=== PATIENT | male | born 1970 | race Caucasian/White ===

== ENCOUNTER → 2016-12-11 | Emergency (ER) | payer SELFPAY ==
[~2016-12-11] MED LIST: FLUCONAZOLE 100 MG TABLET (UD) ONE; FLUCONAZOLE 100 MG TABLET (UD) PO ONE; IBUPROFEN 400 MG TABLET (FP) PO ONE; LIDOCAINE VISCOUS 2% ORAL/TOP 20 ML UNIT-DOSE CUP MM ONE; SODIUM CHLORIDE 1,000 ML IV ONE; SODIUM CHLORIDE 1,000 ML IV STA; prednisoLONE SODIUM PHOSPHATE 15 MG/5 ML ORAL SOLN BOTTLE ONE; prednisoLONE SODIUM PHOSPHATE 15 MG/5 ML ORAL SOLN BOTTLE PO ONE
[2016-12-11 11:55] VITALS: BMI 37.3
--- NOTE | 2016-12-11 12:09 | PDOC ---
History of Present Illness - General History Source: Patient Exam Limitations: No Limitations - History of Present Illness Initial Comments: 12/11/16 12:46 The patient is a 46 year old male, with a significant past medical history of EtOH abuse (last episode saturday night) who presents to the emergency department with swollen tongue and tongue. He ranks his pain a 9/10 in pain intensity. He reports pain when eating and reports the pain radiates from his tongue up into his head. He also reports having trouble opening his mouth secondary to mouth pain. He reports having a new sexual encounter on saturday while intoxicated. He denies any recent fevers. He denies any recent nausea, vomit, diarrhea or constipation. He denies any recent chest pain or shortness of breath. Allergies: NKA Past surgical history: None reported. Social History: Current everyday smoker. EtOH abuse (daily drinker). Cocaine use. <Sher Ratliff - Last Filed: 12/11/16 12:51> - General History Source: Patient, Old Records Exam Limitations: No Limitations <Susan Garcia - Last Filed: 12/11/16 15:36> - General Chief Complaint: Pain Stated Complaint: alcohol withdrawal SWOLLEN TONGUE Time Seen by Provider: 12/11/16 12:09 Past History <Sher Ratliff - Last Filed: 12/11/16 12:51> - Past Medical History Suicide Attempt (Hx): No Other medical history: alcohol abuse - Psycho/Social/Smoking Cessation Hx Anxiety: No Suicidal Ideation: No Smoking Status: Yes Smoking History: Current every day smoker Have you smoked in the past 12 months: Yes Number of Cigarettes Smoked Daily: 5 Information on smoking cessation initiated: Yes 'Breaking Loose' booklet given: 12/11/16 Hx Alcohol Use: Yes (daily) Drug/Substance Use Hx: Yes (hx of cocciane) Substance Use Type: None <Susan Garcia - Last Filed: 12/11/16 15:36> - Past Medical History Allergies/Adverse Reactions: Allergies Allergy/AdvReac Type Severity Reaction Status Date / Time No Known Allergies Allergy Verified 12/11/16 11:44 Home Medications: Ambulatory Orders Silver Sulfadiazine [Silvadene] 1,000 gm TP BID #1 cream..g. 11/06/15 Fluconazole [Diflucan -] 100 mg PO DAILY #14 tablet 12/11/16 Review of Systems - Review of Systems Able to Perform ROS?: Yes Comments:: 12/11/16 12:46 CONSTITUTIONAL: Absent: fever, no chills, no fatigue EYES: Absent: visual changes ENT: +swollen tongue and mouth pain. Absent: ear pain, no sore throat CARDIOVASCULAR: Absent: chest pain, no palpitations RESPIRATORY: Absent: cough, no SOB GI: Absent: abdominal pain, no nausea, no vomiting, no constipation, no diarrhea GENITOURINARY: Absent: dysuria, no frequency, no hematuria MUSKULOSKELETAL: Absent: back pain, no arthralgia, no myalgia SKIN: Absent: rash NEURO: Absent: headache <Sher Ratliff - Last Filed: 12/11/16 12:51> *Physical Exam - Vital Signs Last Vital Signs Temp Pulse Resp BP Pulse Ox 98.7 F 124 H 18 119/79 100 12/11/16 11:46 12/11/16 11:46 12/11/16 11:46 12/11/16 11:46 12/11/16 11:46 - Physical Exam Comments: 12/11/16 12:48 GENERAL: Well developed, well nourished. Awake and alert. No acute distress. HEENT: Discoloration of the tongue (yellowish) with ulceration on lateral aspect of the tongue. +halitosis. Normocephalic, atraumatic. PERRLA, EOMI. No conjunctival pallor. Sclera are non-icteric. Moist mucous membranes. Oropharynx is clear. NECK: Supple. Full ROM. No JVD. Carotid pulses 2+ and symmetric, without bruits. No thyromegaly. No lymphadenopathy. CARDIOVASCULAR: Regular rate and rhythm. No murmurs, rubs, or gallops. Distal pulses are 2+ and symmetric. PULMONARY: No evidence of respiratory distress. Lungs clear to auscultation bilaterally. No wheezing, rales or rhonchi. ABDOMINAL: Soft. Non-tender. Non-distended. No rebound or guarding. No organomegaly. Normoactive bowel sounds. MUSCULOSKELETAL Normal range of motion at all joints. No bony deformities or tenderness. No CVA tenderness. EXTREMITIES: No cyanosis. No clubbing. No edema. No calf tenderness. SKIN: Warm and dry. Normal capillary refill. No rashes. No jaundice. NEUROLOGICAL: Alert, awake, appropriate. Cranial nerves 2-12 intact. No deficits to light touch and temperature in face, upper extremities and lower extremities. No motor deficits in the in face, upper extremities and lower extremities. Normoreflexic in the upper and lower extremities. Normal speech. Toes are down- going bilaterally. Gait is normal without ataxia. PSYCHIATRIC: Cooperative. Good eye contact. Appropriate mood and affect. <Sher Ratliff - Last Filed: 12/11/16 12:51> - Vital Signs Last Vital Signs Temp Pulse Resp BP Pulse Ox 98.7 F 124 H 18 119/79 100 12/11/16 11:46 12/11/16 11:46 12/11/16 11:46 12/11/16 11:46 12/11/16 11:46 <Susan Garcia - Last Filed: 12/11/16 15:36> ED Treatment Course - LABORATORY CBC & Chemistry Diagram: 12/11/16 12:38 12/11/16 12:38 <Sher Ratliff - Last Filed: 12/11/16 12:51> - LABORATORY CBC & Chemistry Diagram: 12/11/16 12:38 12/11/16 12:38 <Susan Garcia - Last Filed: 12/11/16 15:36> Medical Decision Making - Medical Decision Making 12/11/16 13:12 46-year-old male with history of alcohol abuse who presents to the emergency department with 4 day history of, pain and swelling with ulcerative lesions. Differential diagnosis includes but is not limited to: Glossitis, herpangitis, vitamin deficiency dehydration, yeast infection, dehydration, toxic/metabolic derangement. Plan: 1. Labs 2. IV fluids 3. HIV test 4. Viscous lidocaine 5. Steroids 6. Observe and reevaluate 12/11/16 15:32 Addendum: The labs were reviewed and are noted in the EMR. The plan is to discharge the patient on Diflucan 100 mg daily for 13 days. He is received one dose of Diflucan in the ED today. I will refer him to ENT for follow-up. I have also advised the patient to return to the ED if symptoms persist, worsen, or new symptoms arise. <Susan Garcia - Last Filed: 12/11/16 15:36> *DC/Admit/Observation/Transfer - Attestations Scribe Attestion: 12/11/16 12:46 Documentation prepared by Sher Ratliff, acting as medical clerk for Susan Garcia MD. <Sher Ratliff - Last Filed: 12/11/16 12:51> - Discharge Dispostion Admit: No - Attestations Physician Attestion: 12/11/16 13:15 I, Dr. Susan Garcia, attest that the scribes documentation that appears above has been prepared under my direction and personally reviewed by me in its entirety. I confirmed that the note above accurately reflects all work, treatment, procedures, and medical decision-making performed by me. <Susan Garcia - Last Filed: 12/11/16 15:36> Diagnosis at time of Disposition: Glossitis - Discharge Dispostion Disposition: HOME Condition at time of disposition: Stable - Prescriptions Prescriptions: Fluconazole [Diflucan -] 100 mg PO DAILY #14 tablet - Patient Instructions Printed Discharge Instructions: Thrush-Adult Additional Instructions: Follow up with an ENT physician. One doctor is: Dr. Pulido--call [phone] please call for an appointment. Please practice good oral hygeine and brush your teeth at least twice daily. Avoid alcohol and hot liquids. You are being discharged on Diflucan 100mg --take one tablet daily for the next 13 days. Return to the Emergency Department if your symptoms persist, worsen or new symptoms arise.
[2016-12-11 12:51] LABS: BASOPHIL 0.5 % (0-2.0); EOSINOPHIL 0.1 % (0-4.5); MCH 32.3 pg (25.7-33.7); MCHC 34.3 g/dl (32.0-35.9); MEAN CELL VOLUME 94.1 fl (80-96); MEAN PLT VOLUME 9.7 fl (7.5-11.1); NEUTROPHILS 61.4 % (42.8-82.8); PLATELET COUNT 126 K/MM3 (134-434); RDW 12.9 % (11.9-15.9); WHITE BLOOD COUNT 5.1 K/mm3 (4.0-10.0)
[2016-12-11 12:52] LABS: URINE APPEARANCE CLOUDY; URINE BILIRUBIN NEGATIVE (NEGATIVE); URINE BLOOD NEGATIVE (NEGATIVE); URINE COLOR AMBER; URINE GLUCOSE (UA) NEGATIVE (NEGATIVE); URINE KETONE NEGATIVE (NEGATIVE); URINE LEUK ESTERASE NEGATIVE (NEGATIVE); URINE NITRITE NEGATIVE (NEGATIVE); URINE PROTEIN 2+ (NEGATIVE); URINE UROBILINOGEN 2.0 E.U/dl E.U./dl (0.2-1.0)
[2016-12-11 12:57] LABS: URINE MARIJUANA THC NEGATIVE ng/ml (CUTOFF=50)
[2016-12-11 13:01] LABS: GRANULAR CASTS 19 /lpf; URINE BACTERIA MANY /hpf (NONE SEEN); URINE HYALINE CAST 118 /lpf; URINE MUCUS MANY; URINE RBC 1 /hpf (0-3); URINE WBC 8 /hpf (3-5)
[2016-12-11 13:19] LABS: ALBUMIN 4.2 g/dl (3.4-5.0); ANION GAP 11 (8-16); BILIRUBIN,TOTAL 0.8 mg/dL (0.2-1.0); CALCIUM 9.2 mg/dL (8.5-10.1); CO2 26 mmol/L (21-32); CREATININE 1.5 mg/dL (0.7-1.3); GLUCOSE,RANDOM 86 mg/dL (74-106); SGOT/AST 222 U/L (15-37); SGPT/ALT 245 U/L (12-78)
[2016-12-11 13:20] LABS: ALK PHOS 69 U/L (45-117)
[2016-12-11 14:16] LABS: HIV 1 & 2 AB NEGATIVE; HIV 1 AGp24 NEGATIVE
[2016-12-11 15:38] LABS: ACETONE SERUM TRACE (NEGATIVE)
[2016-12-11 15:58] VITALS: BP 136/85; PULSE 98; TEMP 98.3
== END | disposition home or self-care (01) ==
LOC: JER 11:42
PROC: 3E0337Z Introduction of Electrolytic and Water Balance Substance into Peripheral Vein, Percutaneous Approach (ICD-10-PCS; principal; 2016-12-11)
DX: K14.0 Glossitis (principal)
CPT/HCPCS: 36415; 80053; 80307; 81003; 81015; 82009; 85025; 87389; 99283-25

== ENCOUNTER 2017-01-30 17:55 | Emergency (ER) | payer SELFPAY ==
[2017-01-30 18:00] VITALS: BP 151/96; PULSE 115; TEMP 98; BMI 33.0
--- NOTE | 2017-01-30 18:07 | PDOC ---
History of Present Illness - General Chief Complaint: Injury Stated Complaint: INJURY Time Seen by Provider: 01/30/17 18:03 History Source: Patient - History of Present Illness Occurred: reports: this afternoon Upper Extremity Pain Location: right: hand Method of Injury: reports: direct blow Past History - Past Medical History Allergies/Adverse Reactions: Allergies Allergy/AdvReac Type Severity Reaction Status Date / Time No Known Allergies Allergy Verified 01/30/17 18:00 Home Medications: Ambulatory Orders NK [No Known Home Medication] 01/30/17 Suicide Attempt (Hx): No Other medical history: denies - Psycho/Social/Smoking Cessation Hx Anxiety: No Suicidal Ideation: No Smoking Status: Yes Smoking History: Current every day smoker Have you smoked in the past 12 months: Yes Number of Cigarettes Smoked Daily: 10 Information on smoking cessation initiated: Yes 'Breaking Loose' booklet given: 01/30/17 Hx Alcohol Use: No Drug/Substance Use Hx: No Substance Use Type: Alcohol Review of Systems - Review of Systems Musculoskeletal: Yes: Joint Pain, Joint Swelling *Physical Exam - Vital Signs Last Vital Signs Temp Pulse Resp BP Pulse Ox 98 F 115 H 19 151/96 97 01/30/17 17:58 01/30/17 17:58 01/30/17 17:58 01/30/17 17:58 01/30/17 17:58 - Physical Exam General Appearance: Yes: Appropriately Dressed HEENT: positive: Normal Voice Neck: positive: Supple Respiratory/Chest: negative: Respiratory Distress Extremity: positive: Swelling (over MCPs of R 3rd and 4th digits, > over 4th MCP ) Integumentary: positive: Dry, Warm Neurologic: positive: Fully Oriented, Alert, Normal Mood/Affect ED Treatment Course - RADIOLOGY Radiology Studies Ordered: Category Date Time Status HAND- RIGHT [RAD] Stat Radiology 01/30/17 18:05 Ordered Medical Decision Making - Medical Decision Making 01/30/17 18:06 46 yo male, p/w R hand pain and swelling s/p punching a tile wall today when he became angry. Pt well johnny and in NAD w/ moderate swelling over MCP of R 3rd and 4th digits R/o fx -pain meds in ED -XR 01/30/17 18:44 XR neg for fx. Adriel applied in ED. Dc w/ otc pain meds 01/30/17 19:48 01/30/17 19:48 *DC/Admit/Observation/Transfer Diagnosis at time of Disposition: Hand sprain Qualifiers: Encounter type: initial encounter Laterality: right Qualified Code(s): S63.91XA - Sprain of unspecified part of right wrist and hand, initial encounter - Discharge Dispostion Disposition: HOME Condition at time of disposition: Good - Patient Instructions Printed Discharge Instructions: DI for Hand Injury Additional Instructions: Your XR was negative for fracture. Take motrin as needed for pain
[2017-01-30] MEDS: IBUPROFEN 400 MG TABLET (FP) PO ONE (18:27)
== END 2017-01-30 18:48 | disposition home or self-care (01) ==
LOC: JERFT 17:55
DX: S62.501A Fracture of unspecified phalanx of right thumb, initial encounter for closed fracture (principal); S63.91XA Sprain of unspecified part of right wrist and hand, initial encounter; W22.8XXA Striking against or struck by other objects, initial encounter; Y93.89 Activity, other specified; Y92.89 Other specified places as the place of occurrence of the external cause
CPT/HCPCS: 73130-TC-RT; 99281-25

== ENCOUNTER 2017-02-18 18:02 | Emergency (ER) | payer SELFPAY ==
[2017-02-18 18:17] VITALS: BP 120/88; PULSE 113; TEMP 99; BMI 34.0
--- NOTE | 2017-02-18 18:21 | PDOC ---
History of Present Illness - General Chief Complaint: Bite Stated Complaint: BITE Time Seen by Provider: 02/18/17 18:19 History Source: Patient Exam Limitations: No Limitations - History of Present Illness Initial Comments: CHIEF COMPLAINT: 46 y/o afebrile male with no significant PMH here for tick bite to left leg. HISTORY OF PRESENT ILLNESS: Pt states 2 days ago he was bitten on the left leg by a tick. He believes the tick was in his leg for a few hours before he pulled it out and he states he pulled out the entire tick and it was not engorged. He now has a small red area where he was bitten and he is worried. He denies all other symptoms. Vital signs on arrival are notable for pulse of 113. REVIEW OF SYSTEMS: GENERAL/CONSTITUTIONAL: No fever/chills. No weakness. No weight change. HEAD, EYES, EARS, NOSE AND THROAT: No change in vision. No ear pain or discharge. No sore throat. MUSCULOSKELETAL: No joint or muscle swelling or pain. No neck or back pain. SKIN: +tick bite to left calf. NEUROLOGIC: No headache, vertigo, loss of consciousness, or loss of sensation. PHYSICAL EXAM: GENERAL: The patient is awake, alert, and fully oriented, in no acute distress. HEAD: Normal with no signs of trauma. EYES: Pupils equal, round and reactive to light, extraocular movements intact, sclera anicteric, conjunctiva clear. EXTREMITIES: Normal range of motion, no edema. NEUROLOGICAL: Normal speech, normal gait. SKIN: 1.5cm circular area of erythema to proximal, medial left lower leg with central scab. Wound explored and no sign of head of tick. No bullseye rash. No streaking. Past History - Past Medical History Allergies/Adverse Reactions: Allergies Allergy/AdvReac Type Severity Reaction Status Date / Time No Known Allergies Allergy Verified 02/18/17 18:13 Home Medications: Ambulatory Orders Doxycycline Hyclate [Vibramycin -] 100 mg PO BID #42 cap 02/18/17 Suicide Attempt (Hx): No Other medical history: DENIES. - Psycho/Social/Smoking Cessation Hx Anxiety: No Suicidal Ideation: No Smoking Status: Yes Smoking History: Current every day smoker Have you smoked in the past 12 months: Yes Number of Cigarettes Smoked Daily: 4 Information on smoking cessation initiated: No 'Breaking Loose' booklet given: 01/30/17 Hx Alcohol Use: No Drug/Substance Use Hx: No Substance Use Type: Alcohol *Physical Exam - Vital Signs Last Vital Signs Temp Pulse Resp BP Pulse Ox 99 F 113 H 19 120/88 95 02/18/17 18:13 02/18/17 18:13 02/18/17 18:13 02/18/17 18:13 02/18/17 18:13 Medical Decision Making - Medical Decision Making A/P: 46 y/o male here after being bitten by a tick 2 days ago. Do not suspect lyme however will run lyme test and treat empirically with doxy. Informed the patient that we will call him when the results of the lyme test come back. Called and rx for 21 day course of doxy to his pharmacy and gave first dose in the ER. Suggested he f/u with is doctor within 1 week and return to the ER immediately with any worsening or concerning symptoms. The patient verbalizes understanding of all instructions, has no further questions and is awaiting discharge. *DC/Admit/Observation/Transfer Diagnosis at time of Disposition: Tick bite of left calf Qualifiers: Encounter type: initial encounter Qualified Code(s): S80.862A - Insect bite ( nonvenomous), left lower leg, initial encounter; W57.XXXA - Bitten or stung by nonvenomous insect and other nonvenomous arthropods, initial encounter - Discharge Dispostion Disposition: HOME Condition at time of disposition: Good - Prescriptions Prescriptions: Doxycycline Hyclate [Vibramycin -] 100 mg PO BID #42 cap - Patient Instructions Printed Discharge Instructions: DI for Insect Bites and Stings, How to Remove a Tick Additional Instructions: Discharge Instructions: -A prescription for antibiotics was sent to your pharmacy; please take as prescribed -The results of your Lyme test will be called to you within 48-72 hours -Follow up with your doctor within 1 week -Return to the ER with any worsening or concerning symptoms
[2017-02-18] MEDS ORDERED: DOXYCYCLINE HYCLATE 100 MG CAPSULE PO ONE ×2 (18:43→19:00)
== END 2017-02-18 19:10 | disposition home or self-care (01) ==
LOC: JERFT 18:02
DX: S80.862A Insect bite (nonvenomous), left lower leg, initial encounter (principal); W57.XXXA Bitten or stung by nonvenomous insect and other nonvenomous arthropods, initial encounter; Y93.89 Activity, other specified; Y92.89 Other specified places as the place of occurrence of the external cause; F17.210 Nicotine dependence, cigarettes, uncomplicated
CPT/HCPCS: 36415; 86618; 99281-25

== ENCOUNTER 2017-03-22 11:16 | Emergency (ER) | payer SELFPAY ==
[2017-03-22 11:21] VITALS: BP 125/99; PULSE 101; TEMP 97.7; BMI 32.5
--- NOTE | 2017-03-22 12:36 | PDOC ---
History of Present Illness - General Chief Complaint: Bite Stated Complaint: DOG BITE Time Seen by Provider: 03/22/17 11:37 History Source: Patient Exam Limitations: No Limitations - History of Present Illness Initial Comments: 03/22/17 12:27 CHIEF COMPLAINT: Questionable dog bite HISTORY OF PRESENT ILLNESS: Patient is a 46-year-old male, alcoholic himself stating reports he was attempting to break up a dog fight at the park and sustained injury to right third finger. Patient unsure if he was bit by a pit bull. He states he saw some bleeding but there is no abrasion or open area noted. Patient admits to drinking 2 beers today states that he was shaking this morning. Pain with range of motion to third finger PIP. Timing/Duration: reports: just prior to arrival Severity: Yes: moderate Past History - Past Medical History Allergies/Adverse Reactions: Allergies Allergy/AdvReac Type Severity Reaction Status Date / Time No Known Allergies Allergy Verified 03/22/17 11:48 Home Medications: Ambulatory Orders NK [No Known Home Medication] 03/22/17 Suicide Attempt (Hx): No Other medical history: PATIENT DENIES MEDICAL HISTORY - Psycho/Social/Smoking Cessation Hx Anxiety: No Suicidal Ideation: No Smoking Status: Yes Smoking History: Current every day smoker Have you smoked in the past 12 months: Yes Number of Cigarettes Smoked Daily: 40 Information on smoking cessation initiated: No 'Breaking Loose' booklet given: 01/30/17 Hx Alcohol Use: No Drug/Substance Use Hx: No Substance Use Type: Alcohol Review of Systems - Review of Systems Constitutional: No: Symptoms Reported HEENTM: No: Symptoms Reported Respiratory: No: Symptoms reported Cardiac (ROS): No: Symptoms Reported ABD/GI: No: Symptoms Reported : No: Symptoms Reported Musculoskeletal: Yes: Joint Pain (PIP right third finger). No: Joint Swelling, Muscle Pain Integumentary: Yes: Other (no open area or puncture wound). No: Symptoms Reported, Bruising, Erythema Neurological: No: Tingling, Tremors Hematologic/Lymphatic: No: Symptoms Reported All Other Systems: Reviewed and Negative *Physical Exam - Vital Signs Last Vital Signs Temp Pulse Resp BP Pulse Ox 97.7 F 101 H 18 125/99 97 03/22/17 11:18 03/22/17 11:18 03/22/17 11:18 03/22/17 11:18 03/22/17 11:18 - Physical Exam General Appearance: Yes: Appropriately Dressed. No: Apparent Distress Respiratory/Chest: positive: Lungs Clear, Normal Breath Sounds Cardiovascular: positive: Regular Rhythm, Regular Rate Musculoskeletal: positive: Normal Inspection Extremity: positive: Normal Capillary Refill, Normal Inspection, Normal Range of Motion, Tender (PIP right third finger). negative: Swelling, Erythema, Inflammation Integumentary: positive: Normal Color, Dry. negative: Erythema, Swelling, Ecchymosis, Bruising Neurologic: positive: Alert, Normal Mood/Affect, Normal Response, Motor Strength 02/22 ED Treatment Course - RADIOLOGY Radiology Studies Ordered: Category Date Time Status HAND- RIGHT [RAD] Stat Radiology 03/22/17 12:16 Ordered Medical Decision Making - Medical Decision Making 03/22/17 13:42 A/P: Patient here for injury to right hand states that he was breaking up a dogfight may have hyperextended his hand while pulling the dog away, states that he was bleeding from the right third finger knuckle however there is no visible puncture wound noted. X-ray was negative for acute fracture dislocation. Injury is muscular, instructed patient he may take Motrin over-the -counter as needed however advised not to take medication while under the influence of alcohol. Spoke to the Department of Health because there is no visible injury no treatment at this time is required. Patient also under the influence of alcohol states that he is an alcoholic it is not reasonable at this time to prescribe antibiotics patient states he will not stop drinking alcohol. Referred to the clinic for evaluation and referral for detox Patient to follow-up as needed Encourage to cease alcohol use. *DC/Admit/Observation/Transfer Diagnosis at time of Disposition: Finger injury Qualifiers: Encounter type: initial encounter Laterality: right Qualified Code(s): S69.91XA - Unspecified injury of right wrist, hand and finger(s), initial encounter - Discharge Dispostion Disposition: HOME Condition at time of disposition: Good Admit: No - Referrals Referrals: [facility] [Provider Group] - Patient Instructions Additional Instructions: Redness, swelling, or signs of infection return to ER if any redness, swelling, or increased pain to right hand return to ER
== END 2017-03-22 13:50 | disposition home or self-care (01) ==
LOC: JERFT 11:16
DX: S69.91XA Unspecified injury of right wrist, hand and finger(s), initial encounter (principal); X58.XXXA Exposure to other specified factors, initial encounter; Y93.9 Activity, unspecified; Y92.9 Unspecified place or not applicable; F17.210 Nicotine dependence, cigarettes, uncomplicated
CPT/HCPCS: 73130-TC-RT; 99281-25

== ENCOUNTER 2017-09-02 09:13 | Emergency (ER) | payer OTHER ==
[2017-09-02 09:18] VITALS: BP 136/100; PULSE 103; TEMP 98.3; BMI 32.5
[2017-09-02] MEDS ORDERED: DIPHTH,PERTUSS(ACELL),TET 0.5 ML DISP.SYRIN IM ONE (09:32)
--- NOTE | 2017-09-02 09:38 | PDOC ---
History of Present Illness - General Chief Complaint: Laceration Stated Complaint: INJURY Time Seen by Provider: 09/02/17 09:25 History Source: Patient Exam Limitations: No Limitations - History of Present Illness Initial Comments: 09/02/17 10:51 47 yr male with laceration to right inner wrist happened yesterday am while taking out garbage, something sharp sticking out and cut his arm, he believes it was glass. 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 unknown tetanus vaccine. 09/02/17 15:51 Timing/Duration: reports: yesterday Severity: Yes: mild Location: reports: extremities (right inner wrist at the crease ) Past History - Past Medical History Allergies/Adverse Reactions: Allergies Allergy/AdvReac Type Severity Reaction Status Date / Time No Known Allergies Allergy Verified 09/02/17 09:14 Home Medications: Ambulatory Orders NK [No Known Home Medication] 03/22/17 COPD: No - Suicide/Smoking/Psychosocial Hx Smoking Status: Yes Smoking History: Current every day smoker Have you smoked in the past 12 months: Yes Number of Cigarettes Smoked Daily: 6 Information on smoking cessation initiated: Yes 'Breaking Loose' booklet given: 01/30/17 Hx Alcohol Use: Yes (daily) Drug/Substance Use Hx: No Substance Use Type: Alcohol Review of Systems - Review of Systems Able to Perform ROS?: Yes Is the patient limited Hungarian proficient: No Constitutional: No: Symptoms Reported, Unintentional Wgt. Loss HEENTM: No: Symptoms Reported Respiratory: No: Symptoms reported Cardiac (ROS): No: Symptoms Reported ABD/GI: No: Symptoms Reported : No: Symptoms Reported Musculoskeletal: No: Symptoms Reported Integumentary: Yes: See HPI *Physical Exam - Vital Signs Last Vital Signs Temp Pulse Resp BP Pulse Ox 98.3 F 103 H 18 136/100 100 09/02/17 09:15 09/02/17 09:15 09/02/17 09:15 09/02/17 09:15 09/02/17 09:15 - Physical Exam General Appearance: Yes: Nourished, Appropriately Dressed HEENT: positive: EOMI, INNA, Normal ENT Inspection Extremity: positive: Normal Capillary Refill, Normal Range of Motion, Other ( right inner wrist with vertical superficial 1.0cm laceration no bleeding, edges have approximated ) Neurologic: positive: Fully Oriented, Alert, Normal Mood/Affect, Normal Response , Motor Strength 5/5 Procedures - Laceration/Wound Repair Right Wrist Wound Length: to 2.5 cm Wound Explored: contaminated Wound's Depth, Shape: superficial, linear Irrigated w/ Saline: Yes Betadine Prep: Yes Progress: 09/02/17 09:34 bacitracin and bandaid placed after cleaning with betadine wound is superficial 1.0cm linear to the inner crease of right wrist no bleeding edges have approximated Medical Decision Making - Medical Decision Making 09/02/17 15:52 cc: superficial lac over 24hrs old no active bleeding will clean wound and update tetanus pt has no redness or swelling nv intact *DC/Admit/Observation/Transfer Diagnosis at time of Disposition: Tetanus-diphtheria (Td) vaccination, Laceration - Discharge Dispostion Disposition: HOME Condition at time of disposition: Good - Referrals - Patient Instructions Additional Instructions: keep clean with soap and water apply a topical antibiotic cream once a day for 3 -4 days such as Bacitracin or neopsorin cover with bandaid until healed - Post Discharge Activity Forms/Work/School Notes: Back to Work
== END 2017-09-02 09:39 | disposition home or self-care (01) ==
LOC: JERFT 09:13
PROC: 3E0234Z Introduction of Serum, Toxoid and Vaccine into Muscle, Percutaneous Approach (ICD-10-PCS; principal; 2017-09-02)
DX: S61.511A Laceration without foreign body of right wrist, initial encounter (principal); W26.8XXA Contact with other sharp object(s), not elsewhere classified, initial encounter; Y93.E9 Activity, other interior property and clothing maintenance; Y92.038 Other place in apartment as the place of occurrence of the external cause
CPT/HCPCS: 90715; 99281-25

== ENCOUNTER 2018-01-31 20:12 | Emergency (ER) | payer SELFPAY ==
--- NOTE | 2018-01-31 20:28 | PDOC ---
Rapid Medical Evaluation Chief Complaint: Nasal Bleeding Time Seen by Provider: 01/31/18 20:26 Medical Evaluation: Allergies Allergy/AdvReac Type Severity Reaction Status Date / Time No Known Allergies Allergy Verified 09/02/17 09:14 01/31/18 20:27 The patient presents with a chief complaint of: nosebleed I have performed a brief in-person evaluation of this patient. Pertinent physical exam findings: vss, no bleeding I have ordered the following: provider to determine The patient will proceed to the ED for further evaluation.
[2018-01-31 20:31] VITALS: BP 136/97; TEMP 98.3; BMI 34.0
--- NOTE | 2018-01-31 21:28 | PDOC ---
History of Present Illness - General Chief Complaint: Nasal Bleeding Stated Complaint: NOSE BLEED Time Seen by Provider: 01/31/18 20:26 - History of Present Illness Initial Comments: 01/31/18 21:24 Mr. Murray is a 47 yo male w/ no pmh who presents c/o a nosebleed. He reports he had initially had a nose bleed last night at around 7:30pm that stopped on its own but started again at 7:30pm this evening. He reports it was enough blood to fill his hand while he was in the shower and that his nose currently feels dry. He believes the blood is coming from his left nostril. Mr. 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 The patient denies chest pain, shortness of breath, headache and dizziness. Denies fever, chills, nausea, vomit, diarrhea and constipation. Denies dysuria, frequency, urgency and hematuria. Allergies: NKDA Past History - Past Medical History Allergies/Adverse Reactions: Allergies Allergy/AdvReac Type Severity Reaction Status Date / Time No Known Allergies Allergy Verified 09/02/17 09:14 Home Medications: Ambulatory Orders NK [No Known Home Medication] 03/22/17 COPD: No - Suicide/Smoking/Psychosocial Hx Smoking Status: Yes Smoking History: Current every day smoker Have you smoked in the past 12 months: Yes Number of Cigarettes Smoked Daily: 3 Information on smoking cessation initiated: No 'Breaking Loose' booklet given: 01/30/17 Hx Alcohol Use: Yes (daily) Drug/Substance Use Hx: No Substance Use Type: Alcohol Review of Systems - Review of Systems Comments:: 01/31/18 21:27 GENERAL/CONSTITUTIONAL: No fever or chills. No weakness. HEAD, EYES, EARS, NOSE AND THROAT: +Nose bleed as described. No change in vision. No ear pain or discharge. No sore throat. CARDIOVASCULAR: No chest pain or shortness of breath RESPIRATORY: No cough, wheezing, or hemoptysis. GASTROINTESTINAL: No nausea, vomiting, diarrhea or constipation. GENITOURINARY: No dysuria, frequency, or change in urination. MUSCULOSKELETAL: No joint or muscle swelling or pain. No neck or back pain. SKIN: No rash NEUROLOGIC: No headache, vertigo, loss of consciousness, or change in strength/ sensation. ENDOCRINE: No increased thirst. No abnormal weight change HEMATOLOGIC/LYMPHATIC: No anemia, easy bleeding, or history of blood clots. ALLERGIC/IMMUNOLOGIC: No hives or skin allergy. *Physical Exam - Vital Signs Last Vital Signs Temp Pulse Resp BP Pulse Ox 98.3 F 88 18 136/97 100 01/31/18 20:29 01/31/18 20:29 01/31/18 20:29 01/31/18 20:29 01/31/18 20:29 - Physical Exam Comments: 01/31/18 21:27 GENERAL: Awake, alert, and fully oriented, in no acute distress HEAD: No signs of trauma, normocephalic, atraumatic EYES: PERRLA, EOMI, sclera anicteric, conjunctiva clear ENT: Auricles normal inspection, hearing grossly normal, nares patent, oropharynx clear without exudates. Moist mucosa NECK: Normal ROM, supple, no lymphadenopathy, JVD, or masses LUNGS: No distress, speaks full sentences, clear to auscultation bilaterally HEART: Regular rate and rhythm, normal S1 and S2, no murmurs, rubs or gallops, peripheral pulses normal and equal bilaterally. ABDOMEN: Soft, nontender, normoactive bowel sounds. No guarding, no rebound. No masses EXTREMITIES: Normal inspection, Normal range of motion, no edema. No clubbing or cyanosis. NEUROLOGICAL: Cranial nerves II through XII grossly intact. Normal speech, normal gait, no focal sensorimotor deficits SKIN: Warm, Dry, normal turgor, no rashes or lesions noted. Medical Decision Making - Medical Decision Making 01/31/18 22:20 Mr. Murray is a 47 yo male w/ pmh as described presenting for evaluation of nosebleed, now stopped w/out intervention. No concerning findings noted; suspect etiology of bleed to be due to patient's aforementioned job w/ dust surrounding. Discharging w/ instructions to f/u as needed with PCP for further evaluation. 01/31/18 22:58 Patient also reports headache relieved with 975mg of tylenol. Discharging patient to home. *DC/Admit/Observation/Transfer Diagnosis at time of Disposition: Nosebleed - Discharge Dispostion Disposition: HOME Admit: No - Referrals - Patient Instructions Printed Discharge Instructions: DI for Nosebleed Additional Instructions: Please return if any return of nosebleed not controllable with pressure, fever, chills, or other concerning symptoms.. Follow-up with primary care provider as needed for further evaluation. - Post Discharge Activity
--- NOTE | 2018-01-31 21:45 | PDOC ---
Attending Attestation - Resident Resident Name: Gordo Alba - ED Attending Attestation I have performed the following: I have examined & evaluated the patient, The case was reviewed & discussed with the resident, I agree w/resident's findings & plan, Exceptions are as noted - HPI HPI: 01/31/18 21:43 47 M with no PMH presents to ED with epistaxis. Pt states that he first started having a nosebleed yesterday evening. Denies trauma or injury to nose. He states that this stopped spontaneously. Today, he had another nosebleed that did not stop after several minutes, so pt came to ED for evaluation. Pt denies any blood thinners. Denies lightheadedness/CP/SOB/palpitations. Does not regularly get nosebleeds. Upon my evaluation, pt reports bleeding has stopped. - Physicial Exam PE: 01/31/18 21:44 "GENERAL: Awake, alert, and fully oriented, in no acute distress. Generally weak appearing. HEAD: No signs of trauma EYES: PERRLA, EOMI, sclera anicteric, conjunctiva clear ENT: + scant dried blood to left nare, R nare clear, posterior oropharynx clear NECK: Nontender, no stepoffs, Normal ROM, supple, no lymphadenopathy, JVD, or masses LUNGS: Breath sounds equal, clear to auscultation bilaterally. No wheezes, and no crackles HEART: Regular rate and rhythm, normal S1 and S2, no murmurs, rubs or gallops ABDOMEN: Soft, nontender, normoactive bowel sounds. No guarding, no rebound. No masses EXTREMITIES: Normal range of motion, no edema. No clubbing or cyanosis. No cords, erythema, or tenderness NEUROLOGICAL: Cranial nerves II through XII intact. 5/5 strength and sensation in all extremities, Normal speech, normal gait, normal cerebellar function SKIN: Warm, Dry, normal turgor, no rashes or lesions noted. " - Medical Decision Making 01/31/18 21:45 47 M with epistaxis, now resolved. No evidence of posterior nasal bleed. Pt hemodynamically stable, not on anticoagulation. - F/u ENT <Ou,Jamal - Last Filed: 01/31/18 21:43> - HPI HPI: 01/31/18 23:21 Patient is a 47 year old male with no significant past medical history who presents to the ED with complaints of nose bleeding that began last night at 7: 30pm. Patient reports experiencing initial nose bleed last night at 7:30pm that he starts relieved on its own. He reports the nose bleed returned this evening while in the shower, stating it was enough to fill his hands with blood. 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 Denies chest pain, Sob. Denies nausea, vomiting. Denies trauma to affected area. Denies fever, chills. Denies constipation, diarrhea. Denies dysuria, hematuria. Denies any other symptoms. Denies any other symptoms. Allergies: None Social history: Current smoker (3 cigarettes per day). Current alcohol use Surgical history: None PMD: None <Juan Manuel Andrews - Last Filed: 01/31/18 23:22>
[2018-01-31] MEDS ORDERED: ACETAMINOPHEN 500 MG TABLET (FP) PO ONE (22:33)
[2018-01-31] MEDS ORDERED: ACETAMINOPHEN 325 MG TABLET (FP) ONE (22:33)
[2018-01-31 22:36] VITALS: PULSE 98
== END 2018-01-31 22:59 | disposition home or self-care (01) ==
LOC: JER 20:12
DX: R04.0 Epistaxis (principal); F17.210 Nicotine dependence, cigarettes, uncomplicated
CPT/HCPCS: 99281-25

== ENCOUNTER 2018-02-01 06:27 | Emergency (ER) | payer SELFPAY ==
[2018-02-01 06:55] VITALS: TEMP 97.6; BMI 34.0
--- NOTE | 2018-02-01 07:15 | PDOC ---
History of Present Illness - General Chief Complaint: Nasal Bleeding Stated Complaint: NOSEBLEED Time Seen by Provider: 02/01/18 07:12 History Source: Patient - History of Present Illness Initial Comments: 02/01/18 07:15 47yo M with no significant history c/o nosebleeding once again. Pt was here last night around 7:30pm and denied any exacerbating factors. His complaint at that time was epistaxis while in the shower enough to fill his hands with blood. Upon presentation to the ER previously his epistaxis had resolved. 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 Currently pt is presenting with another episode of epistaxis after he went home , however with a smaller amount of volume than previous. He also reports the same unilateral headache he was having previously. Pt denies any fever/chills, cp/discomfort, snorting drug use, SOB, previous bleeding episodes besides these two days, familial bleeding. Pt admittedly reports not regularly following up with any physician and denies taking any medication Past History - Past Medical History Allergies/Adverse Reactions: Allergies Allergy/AdvReac Type Severity Reaction Status Date / Time No Known Allergies Allergy Verified 02/01/18 06:53 Home Medications: Ambulatory Orders NK [No Known Home Medication] 03/22/17 COPD: No - Suicide/Smoking/Psychosocial Hx Smoking Status: Yes Smoking History: Current every day smoker Have you smoked in the past 12 months: Yes Number of Cigarettes Smoked Daily: 5 Information on smoking cessation initiated: No 'Breaking Loose' booklet given: 01/30/17 Hx Alcohol Use: No Drug/Substance Use Hx: No Substance Use Type: Alcohol *Physical Exam - Vital Signs Last Vital Signs Temp Pulse Resp BP Pulse Ox 97.6 F 89 20 144/102 99 02/01/18 06:53 02/01/18 06:53 02/01/18 06:53 02/01/18 06:53 02/01/18 06:53 ED Treatment Course - LABORATORY CBC & Chemistry Diagram: 02/01/18 07:40 02/01/18 07:40 Medical Decision Making - Medical Decision Making 02/01/18 07:30 Pt's BP found to be 164/121 with resolution of epistaxis. Pt also reports same unilateral headache as previous --Would like to get preliminary set of labs due to previous presentation and once again seeing him --CBC, CMP --Labetolol 200mg PO once 02/01/18 08:32 Repeat BP initially 151/113, however patient anxious. After talking with patient for 5 minutes and redoing the blood pressure repeat was 145/97 Pt also admits to being hungry and is eating half an everything bagel with cream cheese when I entered the room --He reports his headache has resolved and he's still without complaints. Afrin 1 spray per nostril ordered --Will executive assistant to general counsel patient on using it *DC/Admit/Observation/Transfer Diagnosis at time of Disposition: Epistaxis Hypertension Qualifiers: Hypertension type: essential hypertension Qualified Code(s): I10 - Essential ( primary) hypertension - Discharge Dispostion Disposition: HOME Condition at time of disposition: Good Admit: No - Referrals - Patient Instructions Additional Instructions: You were seen in the ED for your nosebleed --You will be given Afrin to use once per day one spray in each nostril for only 3 days maximum --This will help your nose heal and prevent further nose bleeds You were also found to have high blood pressure and was given Labetolol 200mg PO once --Please make an appointment with our resident office for follow-up regarding your high blood pressure --The number is so please call and make an appointment - Post Discharge Activity
[2018-02-01] MEDS ORDERED: LABETALOL HCL 200 MG TABLET (FP) PO ONE (07:33)
[2018-02-01] MEDS ORDERED: LABETALOL HCL 100 MG TABLET (FP) ONE (07:38)
[2018-02-01] MEDS ORDERED: LABETALOL HCL 100 MG TABLET (FP) PO ONE (07:45)
[2018-02-01 07:59] VITALS: BP 142/106; PULSE 82
[2018-02-01 08:22] LABS: HEMATOCRIT 46.9 % (35.4-49); HEMOGLOBIN 15.9 GM/dL (11.7-16.9); MCH 32.4 pg (25.7-33.7); MCHC 33.9 g/dl (32.0-35.9); MEAN CELL VOLUME 95.4 fl (80-96); MEAN PLT VOLUME 9.5 fl (7.5-11.1); PLATELET COUNT 128 K/MM3 (134-434); RBC 4.91 M/mm3 (4.00-5.60); WHITE BLOOD COUNT 3.3 K/mm3 (4.0-10.0)
[2018-02-01 08:49] LABS: ALBUMIN 3.7 g/dl (3.4-5.0); ALK PHOS 58 U/L (45-117); ANION GAP 4 (8-16); BILIRUBIN,TOTAL 0.4 mg/dL (0.2-1.0); BLOOD UREA NITROGEN 13 mg/dL (7-18); CALCIUM 9.1 mg/dL (8.5-10.1); CHLORIDE 104 mmol/L (98-107); CO2 29 mmol/L (21-32); CREATININE 0.7 mg/dL (0.7-1.3); GLUCOSE,RANDOM 95 mg/dL (74-106); SGOT/AST 61 U/L (15-37); SGPT/ALT 107 U/L (12-78); SODIUM 137 mmol/L (136-145); TOT PROT 8.3 g/dl (6.4-8.2)
[2018-02-01] MEDS ORDERED: OXYMETAZOLINE 0.05% NASAL SOLUTION 15 ML BOTTLE NS ONE (08:52)
--- NOTE | 2018-02-01 08:53 | PDOC ---
Attending Attestation - HPI HPI: The patient is a 47 year old male accompanied with his , with no significant PMH, who presents to the ED complaining of a nosebleed which began this morning. The patient was in the ED yesterday for a previous episode of epistaxis which occurred in the shower. The patient reports the nose bleed occurred this morning prior to sexual activity. He describes a large amount of blood filling his hand and bathtub. The patient reports the blood is coming from his left nostril. He reports packing tissues in his left nostril to stop the bleeding at the time of the episode, but shortly after, blood came out of the right nostril. At presentation, the patient's nose was not bleeding. 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 The patient denies using blood thinners. The patient denies chest pain, shortness of breath, headache, and dizziness. Denies fevers, chills, nausea, vomiting, diarrhea, and constipation. Denies dysuria, frequency, urgency, and hematuria. Allergies: NKA Social history: Patient admits to smoking 5 cigarettes a day. No reported alcohol consumption or drug use. <EmilianoTerrence - Last Filed: 02/01/18 09:12> - Resident Resident Name: Isaac Gutierrez - ED Attending Attestation I have performed the following: I have examined & evaluated the patient, The case was reviewed & discussed with the resident, I agree w/resident's findings & plan, Exceptions are as noted - Physicial Exam PE: GENERAL: Awake, alert, and fully oriented, in no acute distress HEAD: No signs of trauma EYES: PERRLA, EOMI, sclera anicteric, conjunctiva clear ENT: Auricles normal inspection, hearing grossly normal, nares patent, oropharynx clear without exudates. Moist mucosa. +Boggy turbinates B/L. R nare with trace dried blood. +Small pinpoint area with clotted blood to R anterior septum. L nare with pinpoint area with clotted blood to lateral portion of nare. No active bleeding. NECK: Normal ROM, supple, no lymphadenopathy, JVD, or masses LUNGS: Breath sounds equal, clear to auscultation bilaterally. No wheezes, and no crackles HEART: Regular rate and rhythm, normal S1 and S2, no murmurs, rubs or gallops ABDOMEN: Soft, nontender, normoactive bowel sounds. No guarding, no rebound. No masses EXTREMITIES: Normal range of motion, no edema. No clubbing or cyanosis. No cords, erythema, or tenderness NEUROLOGICAL: Cranial nerves II through XII grossly intact. Normal speech, normal gait SKIN: Warm, Dry, normal turgor, no rashes or lesions noted. - Medical Decision Making 02/01/18 08:58 Symptoms likely a combination of HTN, allergic rhinitis, and vasodilation with hot showers. There is no intervention indicated at this time, as he is not actively bleeding. Will use Afrin, and recommend it once a day before showers for 2-3 days, then stop to avoid rebound congestion. Will also recommend a nasal steroid in the longer term. <Kanwal Amaya - Last Filed: 02/01/18 16:33> Attestations - Attestations Documentation prepared by Terrence Cummings, acting as medical intern for Kanwal Amaya MD. <Terrence Cummings - Last Filed: 02/01/18 09:12>
== END 2018-02-01 10:23 | disposition home or self-care (01) ==
LOC: JER 06:27
DX: I10 Essential (primary) hypertension (principal); R04.0 Epistaxis
CPT/HCPCS: 36415; 80053; 83036; 85027; 99282-25

== ENCOUNTER 2018-05-19 23:05 | Emergency (ER) | payer OTHER ==
[2018-05-19 23:26] VITALS: BP 127/83; PULSE 85; TEMP 97.7; BMI 31.1
--- NOTE | 2018-05-20 01:08 | PDOC ---
*Physical Exam - Vital Signs Last Vital Signs Temp Pulse Resp BP Pulse Ox 97.7 F 85 20 127/83 96 05/19/18 23:23 05/19/18 23:23 05/19/18 23:23 05/19/18 23:23 05/19/18 23:23 Medical Decision Making - Medical Decision Making 05/20/18 01:08 agree with care from THAO Tinajero *DC/Admit/Observation/Transfer Diagnosis at time of Disposition: Dog bite - Discharge Dispostion Disposition: HOME - Prescriptions Prescriptions: Amoxicillin/Potassium Clav [Augmentin 875-125 Tablet] 1 each PO BID #20 tablet - Referrals - Patient Instructions Printed Discharge Instructions: DI for Animal Bites Additional Instructions: please return on 05/22/2018 with your schedule for repeat rabies vaccine. - Post Discharge Activity Forms/Work/School Notes: Back to Work
[2018-05-20] MEDS ORDERED: RABIES IMMUNE GLOBULIN 300 UNITS/2 ML VIAL IM ONE ×2 (01:17→01:30)
[2018-05-20] MEDS ORDERED: RABIES VACCINE (PCEC)/PF 2.5 UNIT/VIAL IM ONE (01:17)
[2018-05-20] MEDS ORDERED: AMOX TR/POT CLAV 875MG/125MG TABLETS (FP) PO ONE (01:22)
--- NOTE | 2018-05-20 01:34 | PDOC ---
History of Present Illness - General Chief Complaint: Bite Stated Complaint: DOG BITE Time Seen by Provider: 05/20/18 00:58 History Source: Patient - History of Present Illness Initial Comments: 05/20/18 02:23 48-year-old male with no past medical history reports that he was walking his dog in the park when a white pitbull came and bit patient in the left sided cheek and left inner lip. Unsure of vaccination history of the dog found in Park. Patient reports that the last tetanus was 2 years ago. Past History - Past Medical History Allergies/Adverse Reactions: Allergies Allergy/AdvReac Type Severity Reaction Status Date / Time No Known Allergies Allergy Verified 02/01/18 06:53 Home Medications: Ambulatory Orders Amoxicillin/Potassium Clav [Augmentin 875-125 Tablet] 1 each PO BID #20 tablet 05/20/18 Cancer: No CVA: No COPD: No DVT: No - Surgical History Cholecystectomy: No Neurologic Surgery: No - Immunization History Immunization Up to Date: No - Suicide/Smoking/Psychosocial Hx Smoking Status: Yes Smoking History: Current every day smoker Have you smoked in the past 12 months: Yes Number of Cigarettes Smoked Daily: 5 Information on smoking cessation initiated: No 'Breaking Loose' booklet given: 01/30/17 Hx Alcohol Use: Yes (socially) Drug/Substance Use Hx: No Substance Use Type: Alcohol Review of Systems - Review of Systems Able to Perform ROS?: Yes Is the patient limited Thai proficient: No Integumentary: Yes: Other (dog bite) *Physical Exam - Vital Signs Last Vital Signs Temp Pulse Resp BP Pulse Ox 97.7 F 85 20 127/83 96 05/19/18 23:23 05/19/18 23:23 05/19/18 23:23 05/19/18 23:23 05/19/18 23:23 - Physical Exam General Appearance: Yes: Appropriately Dressed Integumentary: positive: Other (left upper inner lipabrasion noted. Patient also noted to have a puncture wound to the left side of face proximal to the.) Neurologic: positive: Fully Oriented, Alert Medical Decision Making - Medical Decision Making 05/20/18 02:26 [facility] form's faxed. unable to infiltrate IVIG at the puncture wound site. Site is too small for infiltration. Patient is to get IVIG and rabies vaccine by nurse. Schedule of when to return has been provided to the patient's *DC/Admit/Observation/Transfer Diagnosis at time of Disposition: Dog bite Qualifiers: Encounter type: initial encounter Qualified Code(s): W54.0XXA - Bitten by dog, initial encounter - Discharge Dispostion Disposition: HOME - Prescriptions Prescriptions: Amoxicillin/Potassium Clav [Augmentin 875-125 Tablet] 1 each PO BID #20 tablet - Referrals - Patient Instructions Printed Discharge Instructions: DI for Animal Bites Additional Instructions: please return on 05/22/2018 with your schedule for repeat rabies vaccine. - Post Discharge Activity Forms/Work/School Notes: Back to Work
== END 2018-05-20 03:05 | disposition home or self-care (01) ==
LOC: JER 23:05
PROC: 3E0234Z Introduction of Serum, Toxoid and Vaccine into Muscle, Percutaneous Approach (ICD-10-PCS; principal; 2018-05-19)
DX: S01.452A Open bite of left cheek and temporomandibular area, initial encounter (principal); W54.0XXA Bitten by dog, initial encounter; Y93.89 Activity, other specified; Y92.9 Unspecified place or not applicable; F17.210 Nicotine dependence, cigarettes, uncomplicated
CPT/HCPCS: 90375; 90675; 99281-25

== ENCOUNTER 2018-07-13 10:39 | Emergency (ER) | payer SELFPAY ==
[2018-07-13 11:01] VITALS: BP 160/99; PULSE 78; TEMP 98.9; BMI 31.1
[2018-07-13] MEDS ORDERED: KETOROLAC TROMETHAMINE 60 MG/2 ML VIAL ONE (11:26)
[2018-07-13] MEDS ORDERED: KETOROLAC TROMETHAMINE 60 MG/2 ML VIAL IM ONE (11:27)
--- NOTE | 2018-07-13 11:40 | PDOC ---
History of Present Illness - General Chief Complaint: Pain Stated Complaint: WRIST PAIN Time Seen by Provider: 07/13/18 11:11 History Source: Patient Exam Limitations: Clinical Condition - History of Present Illness Initial Comments: 07/13/18 11:35 Patient with history of hypertension on meds present with complain of 1 week history of left wrist pain status post trying to lift his mother up straining the left wrist. Patient reported increased pain to left wrist with wrist movement. Denies any other symptoms Timing/Duration: 1 week Past History - Past Medical History Allergies/Adverse Reactions: Allergies Allergy/AdvReac Type Severity Reaction Status Date / Time No Known Allergies Allergy Verified 07/13/18 11:01 Home Medications: Ambulatory Orders Arm Brace [Wrist Brace] 1 each MC DAILY #1 each 07/13/18 Ibuprofen 800 mg PO Q8H PRN #20 tablet 07/13/18 Methocarbamol [Robaxin -] 500 mg PO BID PRN #14 tablet 07/13/18 Cancer: No CVA: No COPD: No DVT: No - Surgical History Cholecystectomy: No Neurologic Surgery: No - Immunization History Immunization Up to Date: No - Suicide/Smoking/Psychosocial Hx Smoking Status: Yes Smoking History: Current every day smoker Have you smoked in the past 12 months: Yes Number of Cigarettes Smoked Daily: 5 Information on smoking cessation initiated: No 'Breaking Loose' booklet given: 01/30/17 Hx Alcohol Use: Yes (socially) Drug/Substance Use Hx: No Substance Use Type: Alcohol Review of Systems - Review of Systems Able to Perform ROS?: Yes Is the patient limited Serbian proficient: No Respiratory: No: Symptoms reported Cardiac (ROS): No: Symptoms Reported ABD/GI: No: Symptoms Reported Musculoskeletal: Yes: See HPI, Joint Pain (left wrist), Joint Swelling (left wrist), Muscle Pain (left wrist). No: Joint Stiffness Neurological: No: Numbness, Weakness All Other Systems: Reviewed and Negative *Physical Exam - Vital Signs Last Vital Signs Temp Pulse Resp BP Pulse Ox 98.9 F 78 18 160/99 98 07/13/18 10:58 07/13/18 10:58 07/13/18 10:58 07/13/18 10:58 07/13/18 10:58 - Physical Exam Comments: 07/13/18 11:38 GENERAL: Well developed, well nourished. Awake and alert. mild acute distress. CARDIOVASCULAR: Regular rate and rhythm. No murmurs, rubs, or gallops. PULMONARY: No evidence of respiratory distress. Lungs clear to auscultation bilaterally. No wheezing, rales or rhonchi. ABDOMINAL: Soft. Non-tender. Non-distended. No rebound or guarding. No organomegaly. Normoactive bowel sounds MUSCULOSKELETAL : Moderate tenderness to ulnar aspect of left wrist. Mild swelling to left wrist and hand. No bony deformities SKIN: Warm and dry. Normal capillary refill. No rashes. No jaundice. NEUROLOGICAL: Alert, awake, appropriate. No motor deficits in the lower extremities. Gait is normal without ataxia. PSYCHIATRIC: Cooperative. Good eye contact. Appropriate mood and affect. General Appearance: Yes: Nourished, Appropriately Dressed, Mild Distress ED Treatment Course - RADIOLOGY Radiology Studies Ordered: Category Date Time Status WRIST W/HAND-LEFT* [RAD] Stat Radiology 07/13/18 11:07 Taken - Medications Given in the ED: ED Medications Discontinued Medications Generic Name Dose Route Start Last Admin Trade Name Freq PRN Reason Stop Dose Admin Ketorolac Tromethamine 60 mg 07/13/18 11:27 07/13/18 11:32 Toradol Injection - IM 07/13/18 11:28 60 mg ONCE ONE Administration Medical Decision Making - Medical Decision Making 07/13/18 11:40 Patient with no significant past medical she present with complain of 1 week history of persistent left wrist pain status post straining wrist while doing heavy lifting and week ago. Exam significant for moderate tenderness to ulnar aspect of left wrist with mild swelling to left wrist and hand. X-ray of left wrist and hand shows no acute fracture dislocation. Symptoms likely wrist sprain and will be treated an outpatient with NSAIDs and orthopedist follow-up *DC/Admit/Observation/Transfer Diagnosis at time of Disposition: Wrist injury Qualifiers: Encounter type: initial encounter Laterality: left Qualified Code(s): S69.92XA - Unspecified injury of left wrist, hand and finger(s), initial encounter Sprain of left wrist Qualifiers: Encounter type: initial encounter Qualified Code(s): S63.502A - Unspecified sprain of left wrist, initial encounter - Discharge Dispostion Disposition: HOME Condition at time of disposition: Stable Decision to Admit order: No - Prescriptions Prescriptions: Arm Brace [Wrist Brace] 1 each DAILY #1 each Ibuprofen 800 mg PO Q8H PRN #20 tablet PRN Reason: pain Methocarbamol [Robaxin -] 500 mg PO BID PRN #14 tablet PRN Reason: wrist pain - Referrals Referrals: Derian Carter MD [Staff Physician] - - Patient Instructions Printed Discharge Instructions: DI for Wrist Sprain Additional Instructions: No x-ray was negative. Take prescribed medication as needed for pain. Wear prescribed wrist brace daily until symptoms resolve. Follow up with preferred orthopedics if symptoms persist for more than 4 days - Post Discharge Activity Forms/Work/School Notes: Back to Work
== END 2018-07-13 11:56 | disposition home or self-care (01) ==
LOC: JERFT 10:39
PROC: 2W3DX1Z Immobilization of Left Lower Arm using Splint (ICD-10-PCS; principal; 2018-07-13)
DX: S63.502A Unspecified sprain of left wrist, initial encounter (principal); X50.0XXA Overexertion from strenuous movement or load, initial encounter; Y93.F2 Activity, caregiving, lifting; Y92.039 Unspecified place in apartment as the place of occurrence of the external cause; Y99.8 Other external cause status
CPT/HCPCS: 73110-TC-LR-FY; 73130-TC-LR-FY; 99281-25

== ENCOUNTER 2018-10-26 14:12 | Emergency (ER) | payer OTHER ==
[2018-10-26 14:35] VITALS: TEMP 98; BMI 34.7
[2018-10-26] MEDS ORDERED: IBUPROFEN 600 MG TABLET (FP) PO ONE ×2 (14:46→14:49)
--- NOTE | 2018-10-26 14:51 | PDOC ---
History of Present Illness - General Chief Complaint: Sore Throat Stated Complaint: SORE THROAT Time Seen by Provider: 10/26/18 14:38 History Source: Patient Exam Limitations: No Limitations - History of Present Illness Initial Comments: 10/26/18 14:45 HISTORY OF PRESENT ILLNESS: 48yo man with 2 days of fevers, chills, myalgias and moist productive cough. He denies headaches, nausea, vomiting. His spouse has recently been treated for strep throat and 2 of his coworkers have been diagnosed with influenza. Multiple sick contacts for influenza and strep. PAST MEDICAL HISTORY: HTN SURGICAL HISTORY: Denies ALLERGIES: No known drug allergies REVIEW OF SYSTEMS General/Constitutional: +fever. Denies weakness, weight change. HEENT: Denies change in vision. Denies ear pain or discharge. +sore throat. Cardiovascular: Denies chest pain or shortness of breath. Respiratory: Moist productive cough. Denies wheezing, or hemoptysis. Gastrointestinal: Denies nausea, vomiting, diarrhea or constipation. Denies rectal bleeding. Genitourinary: Denies dysuria, frequency, or change in urination. Musculoskeletal: +myalgias. Denies neck or back pain. Skin and breasts: Denies rash or easy bruising. Neurologic: Denies headache, vertigo, loss of consciousness, or loss of sensation. Psychiatric: Denies depression or anxiety. Endocrine: Denies increased thirst. Denies abnormal weight change. Hematologic/Lymphatic: Denies anemia, easy bleeding, or history of blood clots. Allergic/Immunologic: Denies hives or skin allergy. Denies latex allergy. PHYSICAL EXAM General Appearance: Well-appearing, appropriately dressed. No apparent distress , no intoxication. HEENT: EOMI, PERRLA, normal voice, TMs retracted bilaterally. No conjunctival pallor. No photophobia, scleral icterus. Oropharynx erythematous without lesions or exudate. Cobblestoning noted in the posterior. No nasal discharge present. Neck: Supple. Trachea midline. No tenderness, rigidity, carotid bruit, stridor , or thyromegaly. Nontender anterior cervical lymphadenopathy present. Respiratory/Chest: Lungs CTAB. No shortness of breath, chest tenderness, respiratory distress, accessory muscle use. No crackles, rales, rhonchi, stridor , wheezing, dullness Cardiovascular: RRR. S1, S2. No JVD, murmur, bradycardia, tachycardia. Vascular Pulses: Dorsalis-Pedis (R): 2+, Dorsalis-Pedis (L): 2+ Gastrointestinal/Abdominal: Normal bowel sounds. Abdomen soft, non-distended. No tenderness or rebound tenderness. No organomegaly, pulsatile mass, guarding, hernia, hepatomegaly, splenomegaly. Musculoskeletal/Extremities: Normal inspection. FROM of all extremities, normal capillary refill. Pelvis Stable. No CVA tenderness. No tenderness to extremities, pedal edema, swelling, erythema or deformity. Integumentary: Appropriate color, dry, warm. No cyanosis, erythema, jaundice or rash Neurologic: applications specialist II-XII intact. Fully oriented, alert. Appropriate mood/affect. Motor strength 5/5. No appreciable EOM palsy, facial droop or sensory deficit. Past History - Past Medical History Allergies/Adverse Reactions: Allergies Allergy/AdvReac Type Severity Reaction Status Date / Time No Known Allergies Allergy Verified 10/26/18 14:32 Home Medications: Ambulatory Orders NK [No Known Home Medication] 10/26/18 Cancer: No CVA: No COPD: No DVT: No - Surgical History Cholecystectomy: No Neurologic Surgery: No - Immunization History Immunization Up to Date: No - Suicide/Smoking/Psychosocial Hx Smoking Status: Yes Smoking History: Current every day smoker Have you smoked in the past 12 months: Yes Number of Cigarettes Smoked Daily: 6 Information on smoking cessation initiated: No 'Breaking Loose' booklet given: 01/30/17 Hx Alcohol Use: No Drug/Substance Use Hx: No Substance Use Type: Alcohol *Physical Exam - Vital Signs Last Vital Signs Temp Pulse Resp BP Pulse Ox 98 F 112 H 20 154/102 H 100 10/26/18 14:34 10/26/18 14:34 10/26/18 14:34 10/26/18 14:34 10/26/18 14:34 Moderate Sedation - Procedure Monitoring Vital Signs: Procedure Monitoring Vital Signs Temperature 98 F 10/26/18 14:34 Pulse Rate 112 H 10/26/18 14:34 Respiratory Rate 20 10/26/18 14:34 Blood Pressure 154/102 H 10/26/18 14:34 O2 Sat by Pulse Oximetry (%) 100 10/26/18 14:34 Medical Decision Making - Medical Decision Making 10/26/18 14:51 A/P: 48-year-old male with 2 days of sore throat, body aches, moist cough TMs within normal limits bilaterally Oropharynx erythematous without lesions or exudate present. Cobblestoning in the posterior aspect Nontender anterior cervical lymphadenopathy noted Lungs clear to auscultation bilaterally Given patient has had sick contacts with diagnosed flow and streptococcal pharyngitis I will test for both flu and strep. Motrin 600 mg orally now reassess 10/26/18 15:48 Strep and influenza negative. Supportive treatment has been d/w pt who has verbalized understanding. I discussed the physical exam findings, ancillary test results and final diagnoses with the patient. I answered all of the patient's questions. The patient was satisfied with the care received and felt comfortable with the discharge plan and treatment plan. The patient will call their primary care physician within 24 hours to arrange follow-up and will return to the Emergency Department with any new, persistent or worsening symptoms. *DC/Admit/Observation/Transfer Diagnosis at time of Disposition: Upper respiratory infection Qualifiers: URI type: unspecified viral URI Qualified Code(s): J06.9 - Acute upper respiratory infection, unspecified - Discharge Dispostion Disposition: HOME Condition at time of disposition: Stable Decision to Admit order: No - Referrals - Patient Instructions Additional Instructions: Rest, drink lots of fluids: Teas, water, soups, Pedialyte Saltwater gargles Steamy showers/seem to face break up mucus Avoid contact with others until fevers and cough resolved Lots of handwashing and good hygiene Continue [id number] medications for symptomatic relief Tylenol or Motrin for fever and pain Followup with private physician in one to 2 days as needed Return to emergency department for worsened symptoms, fevers, dehydration - Post Discharge Activity Forms/Work/School Notes: Back to Work
[2018-10-26 15:52] VITALS: BP 130/93
[2018-10-26 15:53] VITALS: PULSE 90
== END 2018-10-26 15:52 | disposition home or self-care (01) ==
LOC: JERFT 14:12
DX: J06.9 Acute upper respiratory infection, unspecified (principal); F17.210 Nicotine dependence, cigarettes, uncomplicated
CPT/HCPCS: 87070; 87804; 87880; 99281-25

== ENCOUNTER 2019-06-28 15:53 | Emergency (ER) | payer OTHER ==
[2019-06-28 16:27] VITALS: TEMP 98.5; BMI 35.4
--- NOTE | 2019-06-28 17:13 | PDOC ---
History of Present Illness - General Chief Complaint: Wound Stated Complaint: Allergic Reaction History Source: Patient Exam Limitations: No Limitations - History of Present Illness Initial Comments: 06/28/19 17:02 Patient is a 49 yo no h/o jaw surgery c/o swelling and redness to the left are and forearm after bee sting 4 days ago. States the area is progressively getting red and is more sensitive. States does not have pain but the area is itching and burning. Denies fever, chills. PMD; Dr. Mulligan PMHX: as above PSOCHX: (+) cig 4/day, etoh occ, no drug ALL: NKDA GENERAL/CONSTITUTIONAL: No fever or chills. No weakness. No weight change. HEAD, EYES, EARS, NOSE AND THROAT: No change in vision. No ear pain or discharge. No sore throat. CARDIOVASCULAR: No chest pain or shortness of breath. RESPIRATORY: No cough, wheezing, or hemoptysis. GASTROINTESTINAL: No nausea, vomiting, diarrhea or constipation. No rectal bleeding. GENITOURINARY: No dysuria, frequency, or change in urination. MUSCULOSKELETAL: No joint or muscle swelling or pain. No neck or back pain. SKIN AND BREASTS: (+) rash or easy bruising. NEUROLOGIC: No headache, vertigo, loss of consciousness, or loss of sensation. PSYCHIATRIC: No depression or anxiety. ENDOCRINE: No increased thirst. No abnormal weight change. HEMATOLOGIC/LYMPHATIC: No anemia, easy bleeding, or history of blood clots. ALLERGIC/IMMUNOLOGIC: No hives or skin allergy. No latex allergy. GENERAL: The patient is awake, alert, and fully oriented, in no acute distress. HEAD: Normal with no signs of trauma. EYES: Pupils equal, round and reactive to light, extraocular movements intact, sclera anicteric, conjunctiva clear. ENT: Ears normal, nares patent, oropharynx clear without exudates. Moist mucous membranes. NECK: Normal range of motion, supple without lymphadenopathy, JVD, or masses. LUNGS: Breath sounds equal, clear to auscultation bilaterally. No wheezes, and no crackles. HEART: Regular rate and rhythm, normal S1 and S2 without murmur, rub. ABDOMEN: Soft, nontender, normoactive bowel sounds. No guarding, no rebound. No masses. EXTREMITIES: Normal range of motion, no edema. No clubbing or cyanosis. No cords, erythema, or tenderness. NEUROLOGICAL: Cranial nerves II through XII grossly intact. Normal speech, normal gait. PSYCH: Normal mood, normal affect. SKIN: (+) Warmth to the left medial aspect of the arm with a dark spot centrally , (+) erythema extending down to the forearm, Dry, normal turgor, no rashes or lesions noted. Past History - Past Medical History Allergies/Adverse Reactions: Allergies Allergy/AdvReac Type Severity Reaction Status Date / Time No Known Allergies Allergy Verified 06/28/19 16:24 Home Medications: Ambulatory Orders Amoxicillin - [Amoxicillin 500mg Capsule -] 500 mg PO BID #14 capsule 10/29/18 Cephalexin Monohydrate [Keflex -] 500 mg PO TID #20 capsule 06/28/19 Sulfamethoxazole/Trimethoprim [Bactrim Ds -] 1 tab PO BID #14 tablet 06/28/19 Cancer: No CVA: No COPD: No DVT: No - Surgical History Cholecystectomy: No Neurologic Surgery: No - Immunization History Immunization Up to Date: No - Suicide/Smoking/Psychosocial Hx Smoking Status: Yes Smoking History: Current some day smoker Have you smoked in the past 12 months: Yes Number of Cigarettes Smoked Daily: 5 Information on smoking cessation initiated: No 'Breaking Loose' booklet given: 01/30/17 Hx Alcohol Use: No Drug/Substance Use Hx: No Substance Use Type: Alcohol *Physical Exam - Vital Signs Last Vital Signs Temp Pulse Resp BP Pulse Ox 98.5 F 106 H 18 112/73 99 06/28/19 16:05 06/28/19 16:05 06/28/19 16:05 06/28/19 16:05 06/28/19 16:05 Medical Decision Making - Medical Decision Making 06/28/19 17:02 Patient is a 49 yo no h/o jaw surgery c/o swelling and redness to the left are and forearm after bee sting 4 days ago. States the area is progressively getting red and is more sensitive. Denies fever, chills. Symptoms consistent with cellulitis keflex and bactrim wound check in 2 days Area of dark spot infiltrated with 1% Lido no epi with a needle point explored for stinger. small stinger taken. I discussed the physical exam findings, ancillary test results and final diagnoses with the patient. I answered all of the patient's questions. The patient was satisfied with the care received and felt comfortable with the discharge plan and treatment plan. The Patient agrees to follow up with the primary care physician within 24-72 hours. *DC/Admit/Observation/Transfer Diagnosis at time of Disposition: Cellulitis Qualifiers: Site of cellulitis: extremity Site of cellulitis of extremity: upper extremity Laterality: left Qualified Code(s): L03.114 - Cellulitis of left upper limb - Discharge Dispostion Disposition: HOME Condition at time of disposition: Stable - Prescriptions Prescriptions: Cephalexin Monohydrate [Keflex -] 500 mg PO TID #20 capsule Sulfamethoxazole/Trimethoprim [Bactrim Ds -] 1 tab PO BID #14 tablet - Referrals Referrals: Lior Clancy MD [Primary Care Provider] - - Patient Instructions Printed Discharge Instructions: DI for Cellulitis -- Adult Additional Instructions: Your Discharge Instructions: You must call primary care physician within 24 hours to arrange follow-up. Return to the Emergency Department with any new, persistent or worsening symptoms, for fever, chills, SOB, dizziness or any other concerning changes that may occur. Wound check in 2 days return to the emergency room fast-track area. Warm compresses in 20 minute intervals FOR 24-48 hours. - Post Discharge Activity
[2019-06-28] MEDS ORDERED: CEPHALEXIN MONOHYDRATE 500 MG CAPSULE (UD) PO ONE (17:22)
[2019-06-28] MEDS ORDERED: SULFAMETHOXAZOLE/TRIMETHOPRIM 800MG/160MG D.S. TABLET PO ONE (17:22)
[2019-06-28] MEDS ORDERED: CEPHALEXIN MONOHYDRATE 500 MG CAPSULE (UD) ONE (17:39)
[2019-06-28] MEDS ORDERED: SULFAMETHOXAZOLE/TRIMETHOPRIM 800MG/160MG D.S. TABLET ONE (17:40)
[2019-06-28 19:52] VITALS: BP 113/53; PULSE 98
== END 2019-06-28 17:45 | disposition home or self-care (01) ==
LOC: JER 15:53
DX: T63.441A Toxic effect of venom of bees, accidental (unintentional), initial encounter (principal); L03.114 Cellulitis of left upper limb; M79.602 Pain in left arm; Y92.9 Unspecified place or not applicable
CPT/HCPCS: 99281-25

== ENCOUNTER 2019-07-26 16:02 | Emergency (ER) | payer OTHER ==
[2019-07-26 16:06] VITALS: BMI 36.9
--- NOTE | 2019-07-26 16:28 | PDOC ---
History of Present Illness - General Chief Complaint: Urinary Problem Stated Complaint: Urinary Problem Time Seen by Provider: 07/26/19 16:28 Past History - Past Medical History Allergies/Adverse Reactions: Allergies Allergy/AdvReac Type Severity Reaction Status Date / Time No Known Allergies Allergy Verified 07/26/19 16:06 Home Medications: Ambulatory Orders Amoxicillin - [Amoxicillin 500mg Capsule -] 500 mg PO BID #14 capsule 10/29/18 Cephalexin Monohydrate [Keflex -] 500 mg PO TID #20 capsule 06/28/19 Sulfamethoxazole/Trimethoprim [Bactrim Ds -] 1 tab PO BID #14 tablet 06/28/19 Cancer: No CVA: No COPD: No DVT: No - Surgical History Cholecystectomy: No Neurologic Surgery: No - Immunization History Immunization Up to Date: No - Psycho Social/Smoking Cessation Hx Smoking Status: Yes Smoking History: Current every day smoker Have you smoked in the past 12 months: Yes Number of Cigarettes Smoked Daily: 5 Information on smoking cessation initiated: No 'Breaking Loose' booklet given: 01/30/17 Hx Alcohol Use: Yes Drug/Substance Use Hx: No Substance Use Type: Alcohol *Physical Exam - Vital Signs Last Vital Signs Temp Pulse Resp BP Pulse Ox 98.2 F 107 H 18 130/73 99 07/26/19 16:03 07/26/19 16:03 07/26/19 16:03 07/26/19 16:03 07/26/19 16:03 ED Treatment Course - LABORATORY CBC & Chemistry Diagram: 07/26/19 17:20 07/26/19 17:20 Medical Decision Making - Medical Decision Making HPI: 49yo M with PMH of nephrolithiasis, HTN presenting with urinary symptoms. Patient reports one day of dysuria, hematuria, urgency, retention, and frequency. He believes he is having these symptoms because of elevated sugar as he has a strong family history of diabetes.He has had these symptoms once before when he was 16 and found to have a kidney stone. Pain is described as burning at the end of urinating. States he passed a stone yesterday and continues to feel like sand is being urinated out. Has not taken anything for pain. Denies history of STIs. Last bowel movement was yesterday and was a semi- loose brown stool. No fevers, but endorses chills. No nausea or vomiting. ROS: Constitutional: no fever, +chills HEENT: no throat pain, no dysphagia Cardiovascular: no chest pain, no palpitations Respiratory: no cough, no shortness of breath Gastrointestinal: no abdominal pain, no nausea Genitourinary: +dysuria, +hematuria Musculoskeletal: no myalgia, no arthralgia Skin: no rash, no itching Neurologic: +headache, no weakness PE: General: Awake, alert, and fully oriented, in no acute distress Head: No signs of trauma Eyes: EOMI, sclera anicteric ENT: Moist mucus membranes Neck: Normal ROM, supple Lungs: Lungs clear, Normal breath sounds Cardio: Regular rhythm, S1 and S2 present Abdomen: Mild tenderness to palpation in suprapubic area. Soft, nondistended. No guarding, no rebound, no masses. No CVA tenderness : no rashes or lesion, no penile discharge, no inguinal hernia appreciated, no testicular tenderness Extremities: Normal range of motion, Distal pulses present SKIN: Warm, Dry, normal turgor Neurologic: Cranial nerves II through XII grossly intact. Normal speech ED Course/MDM: DDX including but not limited to UTI, pyelonephritis, nephrolithasis, prostatitis Labs Tylenol 07/26/19 16:28 CBC WBC 7.6 K/mm3 (4.0-10.0) 07/26/19 17:20 RBC 4.92 M/mm3 (4.00-5.60) 07/26/19 17:20 Hgb 15.7 GM/dL (11.7-16.9) 07/26/19 17:20 Hct 45.9 % (35.4-49) 07/26/19 17:20 MCV 93.3 fl (80-96) 07/26/19 17:20 MCH 31.9 pg (25.7-33.7) 07/26/19 17:20 MCHC 34.2 g/dl (32.0-35.9) 07/26/19 17:20 RDW 13.7 % (11.9-15.9) 07/26/19 17:20 Plt Count 179 K/MM3 (134-434) D 07/26/19 17:20 MPV 9.1 fl (7.5-11.1) 07/26/19 17:20 Absolute Neuts (auto) 3.6 K/mm3 (1.5-8.0) 07/26/19 17:20 Neutrophils % 46.6 % (42.8-82.8) D 07/26/19 17:20 Lymphocytes % 43.6 % (8-40) H D 07/26/19 17:20 Monocytes % 8.0 % (3.8-10.2) 07/26/19 17:20 Eosinophils % 1.3 % (0-4.5) D 07/26/19 17:20 Basophils % 0.5 % (0-2.0) 07/26/19 17:20 Nucleated RBC % 0 % (0-0) 07/26/19 17:20 No leukocytosis CMP Sodium 139 mmol/L (136-145) 07/26/19 17:20 Potassium 4.0 mmol/L (3.5-5.1) 07/26/19 17:20 Chloride 105 mmol/L (98-107) 07/26/19 17:20 Carbon Dioxide 25 mmol/L (21-32) 07/26/19 17:20 Anion Gap 9 MMOL/L (8-16) 07/26/19 17:20 BUN 12.7 mg/dL (7-18) 07/26/19 17:20 Creatinine 0.9 mg/dL (0.55-1.3) 07/26/19 17:20 Est GFR (CKD-EPI)AfAm 115.83 07/26/19 17:20 Est GFR (CKD-EPI)NonAf 99.94 07/26/19 17:20 Random Glucose 91 mg/dL (74-106) 07/26/19 17:20 Calcium 8.9 mg/dL (8.5-10.1) 07/26/19 17:20 Total Bilirubin 0.2 mg/dL (0.2-1) 07/26/19 17:20 AST 21 U/L (15-37) 07/26/19 17:20 ALT 36 U/L (13-61) 07/26/19 17:20 Alkaline Phosphatase 73 U/L (45-117) 07/26/19 17:20 Total Protein 7.9 g/dl (6.4-8.2) 07/26/19 17:20 Albumin 3.6 g/dl (3.4-5.0) 07/26/19 17:20 Electrolytes unremarkable Cr normal Pending UA 07/26/19 18:03 UA negative for infection Decision made to order CT Spiral to rule out nephrolithiasis 07/26/19 18:42 Discharge - Discharge Information Problems reviewed: Yes Clinical Impression/Diagnosis: Dysuria Condition: Stable Disposition: HOME - Follow up/Referral Referrals: Lior Clancy MD [Primary Care Provider] - - Patient Discharge Instructions Patient Printed Discharge Instructions: DI for Dysuria -- Adult Additional Instructions: You came into the emergency department for pain when you urinate. Lab work and CT scan did not indicate acute pathology. Antibiotics prescription has been sent to your pharmacy. You can take [id number] tylenol or motrin for pain. Follow the instructions on the medication bottle. Follow up with your primary care physician this week to discuss this ED visit and for further evaluation of your symptoms. Your care is not complete until you do so. Call and make an appointment. Immediate medical attention is required if you experience: you develop high fevers, chills, persistent vomiting, stop urinating, or any new or concerning symptoms. If you think you have an emergency, call for medical help right away. - Post Discharge Activity
--- NOTE | 2019-07-26 16:52 | PDOC ---
Attending Attestation - Resident Resident Name: Kanwal Ambrose - ED Attending Attestation I have performed the following: I have examined & evaluated the patient, The case was reviewed & discussed with the resident, I agree w/resident's findings & plan, Exceptions are as noted - HPI HPI: 07/26/19 16:53 This 49 yo male has c/o dysuria and frequency 07/26/19 21:00 - Physicial Exam PE: 07/26/19 21:01 I agree with the resident's physical exam - Medical Decision Making 07/26/19 21:[address] reveals bladder changes c/w cystitis no evidence of nephrolithiasis imp UTI and pt started on antibiotics and discharged home
[2019-07-26] MEDS ORDERED: ACETAMINOPHEN 325 MG TABLET (FP) PO ONE (17:08)
[2019-07-26] MEDS ORDERED: ACETAMINOPHEN 325 MG TABLET (FP) ONE (17:15)
[2019-07-26 17:32] LABS: BASO % 0.5 % (0-2.0); EOS % 1.3 % (0-4.5); HEMATOCRIT 45.9 % (35.4-49); HEMOGLOBIN 15.7 GM/dL (11.7-16.9); LYMPH % 43.6 % (8-40); MCH 31.9 pg (25.7-33.7); MCHC 34.2 g/dl (32.0-35.9); MEAN CELL VOLUME 93.3 fl (80-96); MEAN PLT VOLUME 9.1 fl (7.5-11.1); NEUT % 46.6 % (42.8-82.8); PLATELET COUNT 179 K/MM3 (134-434); RBC 4.92 M/mm3 (4.00-5.60); RDW 13.7 % (11.9-15.9); WHITE BLOOD COUNT 7.6 K/mm3 (4.0-10.0)
[2019-07-26 17:58] LABS: ALBUMIN 3.6 g/dl (3.4-5.0); BILIRUBIN,TOTAL 0.2 mg/dL (0.2-1); BLOOD UREA NITROGEN 12.7 mg/dL (7-18); CALCIUM 8.9 mg/dL (8.5-10.1); CREATININE 0.9 mg/dL (0.55-1.3); TOT PROT 7.9 g/dl (6.4-8.2)
[2019-07-26 18:18] LABS: PH,URINE 5.5 (5.0-8.0); URINE APPEARANCE Clear; URINE BILIRUBIN Negative (NEGATIVE); URINE COLOR Yellow; URINE GLUCOSE (UA) Negative (NEGATIVE); URINE KETONE 1+ (NEGATIVE); URINE LEUK ESTERASE Trace (NEGATIVE); URINE NITRITE Negative (NEGATIVE); URINE PROTEIN 1+ (NEGATIVE); URINE UROBILINOGEN 0.2 mg/dL (0.2-1.0)
[2019-07-26 18:31] LABS: HYALINE CASTS 0-5 /lpf (0-8)
[2019-07-26 18:32] LABS: URINE BACTERIA Moderate /hpf (NEGATIVE)
--- NOTE | 2019-07-26 19:08 | PDOC ---
*Physical Exam - Vital Signs Last Vital Signs Temp Pulse Resp BP Pulse Ox 98.2 F 107 H 18 130/73 99 07/26/19 16:03 07/26/19 16:03 07/26/19 16:03 07/26/19 16:03 07/26/19 16:03 - Physical Exam Comments: 07/26/19 19:30 Gen: Alert, NAD, comfortable-appearing. HEENT: PERRL, EOMI, MMM, NCAT. No conjunctival pallor. Sclera are non-icteric. CV: Regular rate and rhythm. No murmurs, rubs, or gallops. PULM: No resp distress. CTAB, no wheezes, rales, or rhonchi. ABD: soft, NT/ND, no rebound tenderness or guarding, no CVA tenderness. MSK: No bony deformities. 2+ pulses in all extremities. NEURO: AAOx3. PERRL. No gross CN deficits. Strength and sensation grossly intact throughout. EXTREMITIES: No cyanosis. No clubbing. No edema. No calf tenderness. PSYCH: Normal mood and thought pattern. SKIN: Warm and dry. Normal capillary refill. No rashes. No jaundice. ED Treatment Course - LABORATORY CBC & Chemistry Diagram: 07/26/19 17:20 07/26/19 17:20 - ADDITIONAL ORDERS Additional order review: Laboratory Results 07/26/19 07/26/19 17:53 17:20 Sodium 139 Potassium 4.0 Chloride 105 Carbon Dioxide 25 Anion Gap 9 BUN 12.7 Creatinine 0.9 Est GFR (CKD-EPI)AfAm 115.83 Est GFR (CKD-EPI)NonAf 99.94 Random Glucose 91 Calcium 8.9 Total Bilirubin 0.2 AST 21 ALT 36 Alkaline Phosphatase 73 Total Protein 7.9 Albumin 3.6 Urine Color Yellow Urine Appearance Clear Urine pH 5.5 Ur Specific Thornton 1.025 Urine Protein 1+ H Urine Glucose (UA) Negative Urine Ketones 1+ H Urine Blood Trace-lysed Urine Nitrite Negative Urine Bilirubin Negative Urine Urobilinogen 0.2 Ur Leukocyte Esterase Trace Urine WBC (Auto) 10-15 Urine RBC (Auto) 5-10 Urine Casts (Auto) 0-5 U Epithel Cells (Auto) 5-10 Urine Bacteria (Auto) Moderate 07/26/19 17:20 RBC 4.92 MCV 93.3 MCHC 34.2 RDW 13.7 MPV 9.1 Neutrophils % 46.6 D Lymphocytes % 43.6 H D Monocytes % 8.0 Eosinophils % 1.3 D Basophils % 0.5 - Medications Given in the ED: ED Medications Discontinued Medications Generic Name Dose Route Start Last Admin Trade Name Rd PRN Reason Stop Dose Admin Acetaminophen 650 mg 07/26/19 17:08 07/26/19 17:27 Tylenol - PO 07/26/19 17:09 650 mg ONCE ONE Administration Medical Decision Making - Medical Decision Making 07/26/19 19:19 Sign out received from Dr Ambrose. 49yo M hx nephrolithiasis and HTN presents with 1 day of dysuria, hematuria, urgency, retention, and frequency and reported passage of kidney stone yesterday. Reviewed CBC and CMP - no concerning findings. UA indicates possible infection. Pending CT spiral to r/o nephrolithiasis. Pt seen and evaluated at bedside. Pt comfortable, no changes or complaints. Physical exam benign, did not do genital exam. Per Dr Ambrose, penile and testicular exam benign. Pending CT. 07/26/19 19:26 CT read: no renal or ureteral calculus, no hydronephrosis. Diffuse bladder wall thickening suspicious for cystitis. Small umbilical hernia contains only fat, no evidence of incarceration. Pt informed of results. Will dc home with PCP f/u and antibiotics for UTI. Return precautions given. Pt understands all dc instructions and all questions were answered. Discharge - Discharge Information Problems reviewed: Yes Clinical Impression/Diagnosis: Dysuria Condition: Stable Disposition: HOME - Admission No - Follow up/Referral Referrals: Lior Clancy MD [Primary Care Provider] - - Patient Discharge Instructions Patient Printed Discharge Instructions: DI for Dysuria -- Adult Additional Instructions: You came into the emergency department for pain when you urinate. Lab work and CT scan indicate a possible UTI (urinary tract infection). The antibiotics prescription has been sent to your pharmacy - take as prescribed. There is no evidence of kidney stone. Your CT scan also indicates a small umbilical hernia - let your primary care doctor know for further evaluation and monitoring. If you experience pain, you can take Tylenol or Ibuprofen as directed on the medication bottle, but do not exceed 3g of Ibuprofen or 4g of Tylenol a day. Follow up with your primary care physician this week to discuss this ED visit and for further evaluation of your symptoms. Your care is not complete until you do so. Call and make an appointment. Immediate medical attention is required if you experience: you develop high fevers, chills, persistent vomiting, stop urinating, or any new or concerning symptoms. If you think you have an emergency, call for medical help right away. - Post Discharge Activity
[2019-07-26 19:48] VITALS: BP 135/97; PULSE 97; TEMP 97.9
== END 2019-07-26 19:35 | disposition home or self-care (01) ==
LOC: JER 16:02
DX: N39.0 Urinary tract infection, site not specified (principal); I10 Essential (primary) hypertension; Z87.442 Personal history of urinary calculi
CPT/HCPCS: 36415; 74176-TC; 80053; 81003; 85025; 87086; 87186; 99282-25

== ENCOUNTER 2019-10-05 17:34 | Emergency (ER) | payer OTHER ==
--- NOTE | 2019-10-05 17:56 | PDOC ---
Rapid Medical Evaluation Time Seen by Provider: 10/05/19 17:51 Medical Evaluation: Allergies Allergy/AdvReac Type Severity Reaction Status Date / Time No Known Allergies Allergy Verified 07/26/19 16:06 10/05/19 17:54 This patient received a in-person evaluation in triage cc/HPI: s/p fall onto right knee yesterday as he was getting up from couch. Denies head strike, dizziness before or after fall PE: NAd unlabored breathing + swelling of right knee pain with flexion ( in w/c) orders:knee xray This patient will proceed to ED for further evaluation Discharge Disposition - Diagnosis Right knee pain - Discharge Dispostion Disposition: HOME Condition at time of disposition: Stable - Prescriptions Prescriptions: Ibuprofen [Motrin -] 600 mg PO TID #30 tablet - Referrals Referrals: Lior Clancy MD [Primary Care Provider] - Roland Joseph DO [Staff Physician] - - Patient Instructions Additional Instructions: Motrin for pain return to the emergency room for worsening symptoms. Follow-up with orthopedics in 1 to 2 days without fail you may weight-bear as tolerated with crutches and the knee immobilizer - Post Discharge Activity Work/School Note: Back to Work
[2019-10-05 17:57] VITALS: BP 130/93; PULSE 113; TEMP 97.8; BMI 35.4
--- NOTE | 2019-10-05 18:41 | PDOC ---
History of Present Illness - General Chief Complaint: Pain, Acute Stated Complaint: RIGHT KNEE PAIN Time Seen by Provider: 10/05/19 17:51 - History of Present Illness Initial Comments: 10/05/19 18:39 49-year-old male without comorbidities presents for evaluation of right knee pain after a fall off the couch last night Past History - Past Medical History Allergies/Adverse Reactions: Allergies Allergy/AdvReac Type Severity Reaction Status Date / Time No Known Allergies Allergy Verified 10/05/19 17:52 Home Medications: Ambulatory Orders Amoxicillin - [Amoxicillin 500mg Capsule -] 500 mg PO BID #14 capsule 10/29/18 Cephalexin Monohydrate [Keflex -] 500 mg PO TID #20 capsule 06/28/19 Sulfamethoxazole/Trimethoprim [Bactrim Ds -] 1 tab PO BID #14 tablet 06/28/19 Cephalexin Monohydrate [Keflex -] 500 mg PO QID #28 capsule 07/27/19 Ibuprofen [Motrin -] 600 mg PO TID #30 tablet 10/05/19 Cancer: No CVA: No COPD: No DVT: No - Surgical History Cholecystectomy: No Neurologic Surgery: No - Immunization History Immunization Up to Date: No - Psycho Social/Smoking Cessation Hx Smoking Status: Yes Smoking History: Never smoked Have you smoked in the past 12 months: Yes Number of Cigarettes Smoked Daily: 5 Information on smoking cessation initiated: No 'Breaking Loose' booklet given: 01/30/17 Hx Alcohol Use: No Drug/Substance Use Hx: No Substance Use Type: Alcohol Review of Systems - Review of Systems Musculoskeletal: Yes: Joint Pain *Physical Exam - Vital Signs Last Vital Signs Temp Pulse Resp BP Pulse Ox 97.8 F 113 H 17 130/93 96 10/05/19 17:52 10/05/19 17:52 10/05/19 17:52 10/05/19 17:52 10/05/19 17:52 - Physical Exam 10/05/19 18:40 There is a small superficial abrasion on the anterior aspect of the right knee. The patient's tolerance for pain is completely out of proportion to the examination he resist even light touch. He has no gross sensorimotor deficits Medical Decision Making - Medical Decision Making 10/05/19 18:40 X-rays of the right knee show no evidence of fracture trauma or destructive process. Right knee pain follow-up with Ortho weight-bear as tolerated with knee immobilizer and crutches Discharge - Discharge Information Problems reviewed: Yes Clinical Impression/Diagnosis: Right knee pain Condition: Stable Disposition: HOME - Admission No - Additional Discharge Information Prescriptions: Ibuprofen [Motrin -] 600 mg PO TID #30 tablet - Follow up/Referral Referrals: Lior Clancy MD [Primary Care Provider] - Roland Joseph DO [Staff Physician] - - Patient Discharge Instructions Additional Instructions: Motrin for pain return to the emergency room for worsening symptoms. Follow-up with orthopedics in 1 to 2 days without fail you may weight-bear as tolerated with crutches and the knee immobilizer - Post Discharge Activity
== END 2019-10-05 19:15 | disposition home or self-care (01) ==
LOC: JER 17:34 → JERFT 17:34
PROC: 2W3QX1Z Immobilization of Right Lower Leg using Splint (ICD-10-PCS; principal; 2019-10-05)
DX: M25.561 Pain in right knee (principal); W08.XXXA Fall from other furniture, initial encounter; Y93.89 Activity, other specified; Y92.89 Other specified places as the place of occurrence of the external cause; F17.210 Nicotine dependence, cigarettes, uncomplicated
CPT/HCPCS: 73560-TC-RT-FY; 99281-25

== ENCOUNTER 2020-11-22 20:18 | Emergency (ER) | payer OTHER ==
[2020-11-22 20:23] VITALS: BP 135/95; PULSE 97; TEMP 98.1; BMI 35.4
[2020-11-22] MEDS ORDERED: DIPHTH,PERTUSS(ACELL),TET 0.5 ML DISP.SYRIN IM ONE ×2 (20:51→20:55)
== END 2020-11-22 21:32 | disposition home or self-care (01) ==
LOC: JERFT 20:18
PROC: 0HQGXZZ Repair Left Hand Skin, External Approach (ICD-10-PCS; principal; 2020-11-22)
PROC: 3E0234Z Introduction of Serum, Toxoid and Vaccine into Muscle, Percutaneous Approach (ICD-10-PCS; 2020-11-22)
DX: S61.211A Laceration without foreign body of left index finger without damage to nail, initial encounter (principal)
CPT/HCPCS: 90715; 99284-25

== ENCOUNTER 2021-06-17 21:37 | Emergency (ER) | payer OTHER ==
[2021-06-17 21:45] VITALS: BP 144/91; TEMP 98.6; BMI 41.3
[2021-06-17] MEDS ORDERED: IBUPROFEN 600 MG TABLET (FP) PO ONE ×2 (22:38→22:41)
[2021-06-17 23:00] VITALS: PULSE 98
== END 2021-06-17 23:00 | disposition home or self-care (01) ==
LOC: JERFT 21:37 → JER 21:37 → JERFT 23:00
DX: S60.212A Contusion of left wrist, initial encounter (principal)
CPT/HCPCS: 73090-TC-LT-FY; 73110-TC-LT-FY; 99284-25